=== PATIENT | female | born 1975 | race Caucasian/White ===

== ENCOUNTER 2024-01-04 10:10 | Emergency (ER) | payer OTHER, SELFPAY ==
[2024-01-04 10:13] VITALS: BP 109/82; PULSE 74; RESP 16; TEMP 36.4; O2SAT 99; BMI 23.6
--- NOTE | 2024-01-04 12:28 | EX.ED.DYSGE1 ---
HPI History of Present Illness Chief Complaint: Wound Informant: patient Onset/Context/Timing Onset: Yesterday Context: Sudden Onset Timing: Continuous Quality: Abrasion Location: Right forearm Worsened by: Nothing Relieved by: Nothing Narrative Narrative: Patient presents with possible rabies exposure that occurred yesterday. Patient states that a flores was trying to get to a chicken and she was able to secure the flores away. Patient states she reached down to slat pickler the chicken and noted that there was saliva from the flores on the chicken's feathers. Later, patient noted a scratch to her right forearm. Patient states that she also had a previous puncture wound on her right index finger. Patient states that these wounds were were exposed to the saliva from the flores. Patient states she has been immunized with rabies vaccine in the past but is out of date on this. Patient states her last tetanus was approximately 10 years ago as well. PFSH PFSH Medical History no medical history no medical history Allergy/AdvReac Type Severity Reaction Status Date / Time No Known Allergies Allergy Verified 01/04/24 10:13 Surgical History no surgical history no surgical history Social History Smoking Status: Never smoker ROS ROS ED Constitutional Constitutional ED: Denies chills or fever(s) Eyes Eyes: Denies blurry vision or change in vision ENT ENT ED: Denies rhinorrhea or sore throat Cardiovascular Cardiovascular: Denies chest pain or palpitations Respiratory/Chest Respiratory/Chest: Denies cough or dyspnea Gastrointestinal Gastrointestinal: Denies nausea or vomiting Genitourinary Genitourinary ED: Denies dysuria or hematuria Musculoskeletal Musculoskeletal: Denies back pain or neck pain Integumentary Denies abscess or rash Neurologic Neurologic: Denies headache(s) or weakness Allergic/Immunologic Allergic/Immunologic ED: Denies mouth swelling or urticaria EXAM Physical Exam Const Vital Signs: 01/04/24 10:13 Temperature 97.5 F L Temperature Source Oral Pulse Rate 74 Respiratory Rate 16 Blood Pressure 109/82 H Blood Pressure Mean 91 Pulse Ox 99 Oxygen Delivery Method Room Air Positive well nourished and well developed General Appearance ED: well developed and NAD HEENT Reports moist mucous membranes Neck supple and no JVD Resp normal respiratory effort and clear to auscultation bilaterally Cardio regular rate and regular rhythm Extremity Extremity Narrative: There is a very superficial linear abrasion over the volar aspect of the right forearm. There is no active bleeding noted. There is no gapping of the wound margins. There is full range of motion. There is no surrounding erythema. Neuro oriented x3, CN's II-XII intact bilaterally and no sensory deficits noted Sensorium / Orientation: alert Motor Exam: strength 5/5 throughout MDM MDM MDM Narrative Medical decision making narrative: Since the patient has had previous rabies vaccine, patient does not require rabies immunoglobulin. Patient was given rabies vaccine here. Patient was instructed return in 3 days for repeat rabies vaccine. Patient was also given a tetanus booster. Patient was instructed to follow-up with her primary care physician in 5 to 7 days. Patient understood and was agreeable with the plan. All questions were answered. Discharge Plan Triage Chief Complaint: Wound ED Provider: Vitaliy Hamm Dx/Rx/DC Orders Clinical Impression: Contact with and (suspected) exposure to rabies, Abrasion of right forearm Instructions: Understanding Rabies, ED Abrasion Primary Care Provider: Care Physician,No Primary Referrals: NOT,DEFINED [Non-Staff] - 5-7 Days Activity Restrictions/Additional Instructions: Return in 3 days for repeat rabies vaccine Print Language: Ukrainian Disposition Disposition: Home, Self Care
[2024-01-04] MEDS: Diphth,Pertuss(Acell),Tet Vac 0.5 ML Vial IM (12:57)
[2024-01-04] MEDS: Rabies Vaccine,Human Diploid 2.5 UNITS Vial IM (12:59)
[2024-01-04 13:21] VITALS: BP 109/82; PULSE 74; RESP 16; TEMP 36.4; O2SAT 99
== END 2024-01-04 13:23 | disposition home or self-care (01) ==
PROVIDERS: Emergency Provider Emergency Medicine; Visit Provider Emergency Medicine
DX: S50.811A Abrasion of right forearm, initial encounter (principal); Z20.3 Contact with and (suspected) exposure to rabies; X58.XXXA Exposure to other specified factors, initial encounter; Y93.K9 Activity, other involving animal care
CPT/HCPCS: 90675; 90715; 99282

== ENCOUNTER 2024-01-07 08:17 | Outpatient (CLI) | payer OTHER, SELFPAY ==
[2024-01-07 08:17] VITALS: BP 107/80; PULSE 71; RESP 14; O2SAT 100
[2024-01-07] MEDS: Rabies Vaccine,Human Diploid 2.5 UNITS Vial IM (08:54)
== END 2024-01-07 09:37 | disposition home or self-care (01) ==
LOC: ED 09:36
DX: Z23 Encounter for immunization (principal)
CPT/HCPCS: 90675